=== PATIENT | male | born 1995 | race Caucasian/White ===

== ENCOUNTER 2022-10-25 11:44 | Emergency (ER) | payer OTHER ==
[2022-10-25 11:59] VITALS: BP 127/77; PULSE 67; RESP 16; TEMP 97.9; BMI 26.4
== END 2022-10-25 14:13 | disposition home or self-care (01) ==
LOC: JERFT 11:44
DX: L25.5 Unspecified contact dermatitis due to plants, except food (principal); R21 Rash and other nonspecific skin eruption; L29.0 Pruritus ani
CPT/HCPCS: 99283-25